=== PATIENT | female | born 1990 | race Caucasian/White ===

== ENCOUNTER 2018-11-15 04:54 | Inpatient (IN) | payer OTHER ==
[~2018-11-15] VITALS: Ht 160 cm; Wt 74.4 kg
[2018-11-15 05:37] VITALS: BP 106/66
[2018-11-15] MEDS ORDERED: PREN1TAB80 PO (05:43)
[2018-11-15] MEDS ORDERED: RINGERS SOLUTION,LACTATED 1,000 ML IV PRN (06:37)
[2018-11-15] MEDS ORDERED: OXYTOCIN 30 UNITS/LACT RINGERS 500 ML IV ONE (06:37)
[2018-11-15] MEDS ORDERED: METOCLOPRAMIDE HCL 5 MG/ML 2 ML VIAL IVP PRN (06:45)
[2018-11-15] MEDS ORDERED: FentaNYL CITRATE-PF 100 MCG/2 ML VIAL IVP PRN (06:45)
[2018-11-15] MEDS ORDERED: CITRIC ACID/SODIUM CITRATE 30 ML SOLUTION UDCUP PO PRN (06:45)
[2018-11-15 06:50] LABS: APPEARANCE,URINE CLEAR (CLEAR); BILIRUBIN,URINE NEGATIVE (NEGATIVE); GLUCOSE, URINE (UA) NEGATIVE (NEGATIVE); KETONES,URINE NEGATIVE (NEGATIVE); LEUKOCYTE ESTERASE ,URINE NEGATIVE (NEGATIVE); NITRATE,URINE NEGATIVE (NEGATIVE); OCCULT BLOOD,URINE LARGE (NEGATIVE); PROTEIN,URINE POS 1+ (NEGATIVE); UROBILINOGEN,URINE 0.2 mg/dL (<=1.0)
[2018-11-15 07:23] LABS: EOSINOPHILS % (AUTO) 1.1 % (1.0-6.0); HEMATOCRIT 34.5 % (36-46); HEMOGLOBIN 11.3 g/dL (12.0-16.0); LYMPHOCYTES # (AUTO) 1.7 K/uL (1.0-4.8); LYMPHOCYTES % (AUTO) 16.9 % (22.0-44.0); MEAN CORPUSCULAR HEMOGLOBIN 27.3 pg (26.0-34.0); MEAN CORPUSCULAR HGB CONC 32.7 G/dL (31.0-37.0); MEAN CORPUSCULAR VOLUME 83 fL (80-100); MONOCYTES # (AUTO) 0.7 K/uL (0.1-1.0); MONOCYTES % (AUTO) 7.1 % (2.0-9.0); NEUTROPHILS # (AUTO) 7.4 K/uL (1.8-7.7); NEUTROPHILS % (AUTO) 73.9 % (40.0-70.0); PLATELET COUNT (AUTO)-OB 221 K/uL (150-450); RED BLOOD CELL COUNT(AUTO) 4.13 MIL/uL (4.00-5.20); RED CELL DISTRIBUTION WIDTH 13.9 % (11.5-14.5)
[2018-11-15 07:26] LABS: BACTERIA,URINE None Seen /HPF (None Seen); SQUAMOUS EPITHELIAL CELL,UR Moderate /LPF (None Seen); WBC,URINE None Seen /HPF (0-5)
[2018-11-15] MEDS: RINGERS SOLUTION,LACTATED 1,000 ML IV SCH ×2 (07:26→15:08)
[2018-11-15] MEDS ORDERED: AMPICILLIN SODIUM 2 GM/NS 100 ML IV ONE (07:30)
[2018-11-15] MEDS: BETAMETHASONE SOLUSPAN 6 MG/ML 5 ML VIAL IM SCH ×2 (07:51→20:28)
[2018-11-15] MEDS ORDERED: OXYGEN THERAPY IH SCH (08:00)
[2018-11-15] MEDS: AMPICILLIN SODIUM 1 GM/NS 50 ML IV SCH ×3 (11:39→20:20)
[2018-11-15] MEDS ORDERED: MISOPROSTOL 25 MCG TABLET PO ONE ×2 (19:15→23:25)
[2018-11-16] MEDS: AMPICILLIN SODIUM 1 GM/NS 50 ML IV SCH ×3 (01:23→10:14)
[2018-11-16] MEDS: RINGERS SOLUTION,LACTATED 1,000 ML IV SCH ×3 (01:24→09:26)
[2018-11-16] MEDS ORDERED: OXYTOCIN 30 UNITS/LACT RINGERS 500 ML IV PRN (03:29)
[2018-11-16] MEDS ORDERED: LIDOCAINE/PF 2% 5 ML VIAL ONE (04:26)
[2018-11-16] MEDS ORDERED: ROPIVACAINE HCL/PF 0.2% 100 ML ED ONE (04:27)
[2018-11-16] MEDS ORDERED: ROPIVACAINE HCL/PF 0.2% 100 ML ED PRN (05:00)
[2018-11-16] MEDS ORDERED: NALBUPHINE HCL 10 MG/ML VIAL IVP PRN (05:00)
[2018-11-16] MEDS ORDERED: DiphenhydrAMINE HCL 50 MG/ML VIAL IVP PRN (05:00)
[2018-11-16] MEDS ORDERED: ONDANSETRON HCL 4 MG/2 ML VIAL IVP PRN (05:00)
[2018-11-16] MEDS ORDERED: BENZOCAINE 20%/MENTHOL 56 GM SPRAY CANISTER TP PRN (11:45)
[2018-11-16] MEDS ORDERED: ACETAMINOPHEN/CODEINE 300-30 MG TABLET PO PRN ×2 (11:45)
[2018-11-16] MEDS ORDERED: GLYCERIN/WITCH HAZEL LEAF 40 PADS JAR TP PRN (11:45)
[2018-11-16] MEDS ORDERED: LANOLIN 7 GM OINTMENT TP PRN (11:45)
[2018-11-16] MEDS: IBUPROFEN 800 MG TABLET PO SCH ×2 (15:21→22:40)
[2018-11-16] MEDS ORDERED: MAGNESIUM HYDROXIDE SUSPENSION 30 ML UDCUP PO SCH (21:00)
[2018-11-17] MEDS: IBUPROFEN 800 MG TABLET PO SCH (04:46)
== END 2018-11-17 13:15 | disposition home or self-care (01) | DRG 807 ==
LOC: 4S 04:54 → OBSVTOIN 04:54
PROVIDERS: ADMIT Obstetrics & Gynecology; ATTEND Obstetrics & Gynecology
PROC: 10D07Z6 Extraction of Products of Conception, Vacuum, Via Natural or Artificial Opening (ICD-10-PCS; principal; 2018-11-16)
PROC: 3E0R3BZ Introduction of Anesthetic Agent into Spinal Canal, Percutaneous Approach (ICD-10-PCS; 2018-11-16)
PROC: 00HU33Z Insertion of Infusion Device into Spinal Canal, Percutaneous Approach (ICD-10-PCS; 2018-11-16)
PROC: 0W8NXZZ Division of Female Perineum, External Approach (ICD-10-PCS; 2018-11-16)
DX: O69.81X0 Labor and delivery complicated by cord around neck, without compression, not applicable or unspecified (principal); Z37.0 Single live birth; Z3A.36 36 weeks gestation of pregnancy
CPT/HCPCS: 86850; 86900; 86901; 89060; J0290; J0702; J2590; J2795; J3490; J7120